=== PATIENT | female | born 1990 | race Asian ===

== ENCOUNTER 2022-06-25 12:53 | Outpatient (CLI) | payer OTHER, SELFPAY ==
--- NOTE | ~2022-06-25 | MMUS_ITS ---
EXAMINATION: MM diagnostic debra BI w aisha, US breast LT complete HISTORY: TECHNIQUE: ML, MLO and CC 3-D tomosynthesis images of both breasts were performed and synthetic 2-D i mages were generated. CAD analysis was submitted and interpreted. High resolution complete left breas t ultrasound including all 4 quadrants and subareolar area was performed. COMPARISON: 10/22/2008 left breast ultrasound targeted at 7-9:00; no abnormality noted BREAST PARENCHYMAL COMPOSITION: The breasts are heterogeneously dense, which may obscure small masses . FINDINGS: MAMMOGRAPHIC FINDINGS: No suspicious mass or architectural distortion, malignant calcification, skin thickening or retractio n is detected. ULTRASOUND: No suspicious mass or shadowing, cyst or other significant sonographic finding is noted in the left b reast. IMPRESSION: 1. No mammographic evidence of malignancy 2. Routine annual mammographic screening beginning at age 40 is recommended BI-RADS Category 1: Negative Reviewed, dictated and finalized at location A. IMPRESSION: 1. No mammographic evidence of malignancy 2. Routine annual mammographic screening beginning at age 40 is recommended BI-RADS Category 1: Negative
== END 2022-06-25 12:54 | disposition home or self-care (01) ==
LOC: ANHIMG 13:13
PROVIDERS: PCP Internal Medicine; Visit Provider Nurse Practitioner
DX: N63.20 Unspecified lump in the left breast, unspecified quadrant (principal)
CPT/HCPCS: 76641; 77062; 77066; G0279